=== PATIENT | female | born 1950 | race Caucasian/White ===

== ENCOUNTER 2017-01-08 10:53 | Emergency (ER) | payer OTHER ==
[2017-01-08 10:58] VITALS: BP 128/71; PULSE 63; TEMP 97.8; BMI 29.2
--- NOTE | 2017-01-08 12:37 | PDOC ---
History of Present Illness - General Chief Complaint: Injury Stated Complaint: PCP SENT/EVAL Time Seen by Provider: 01/08/17 12:00 History Source: Patient Exam Limitations: No Limitations - History of Present Illness Initial Comments: 01/08/17 12:31 And sent from [facility] for evaluation of fifth metatarsal fracture right foot. Patient was placed in a cast shoe, and was told would need to see an orthopedist immediately. Patient came to this emergency department for about evaluation from orthopedist. 01/08/17 12:38 Occurred: reports: just prior to arrival Severity: reports: mild, moderate Pain Location: reports: lower extremity (right foot ) Method of Injury: Yes: fall (inversion injury to right ankle ) Associated Symptoms (Fall): denies symptoms Past History - Travel Traveled outside of the country in the last 30 days: No Close contact w/someone who was outside of country & ill: No - Past Medical History Allergies/Adverse Reactions: Allergies Allergy/AdvReac Type Severity Reaction Status Date / Time No Known Allergies Allergy Verified 01/08/17 10:58 Home Medications: Ambulatory Orders Cholecalciferol (Vitamin D3) [Vitamin D] 2,000 unit PO DAILY 02/24/13 Folic Acid 1,000 mg PO DAILY 02/24/13 Aspirin [Aspir 81] 81 mg PO DAILY 10/31/15 Calcium Carbonate [Tums] 300 mg PO DAILY PRN 10/31/15 Allopurinol [Zyloprim -] 300 mg PO ASDIR 12/08/15 Methotrexate [Mexate -] 12.5 mg PO Q7D 12/08/15 Metoprolol Succinate [Toprol XL -] 25 mg PO DAILY 12/08/15 Anemia: No Asthma: No Cancer: No Cardiac Disorders: No CVA: No COPD: No CHF: No Dementia: No Diabetes: No GI Disorders: No Disorders: No HTN: Yes Hypercholesterolemia: Yes Liver Disease: No Seizures: No Thyroid Disease: Yes - Surgical History Abdominal Surgery: No Appendectomy: No Cardiac Surgery: No Cholecystectomy: No Lung Surgery: (lung biopsy) Neurologic Surgery: No Orthopedic Surgery: No - Immunization History Immunization Up to Date: Yes - Psycho/Social/Smoking Cessation Hx Anxiety: No Suicidal Ideation: No Smoking Status: No Smoking History: Never smoked Have you smoked in the past 12 months: No Number of Cigarettes Smoked Daily: 0 Hx Alcohol Use: Yes (SOCIAL) Drug/Substance Use Hx: No Substance Use Type: None Hx Substance Use Treatment: No Trauma Specific PMHX - Complaint Specific PMHX Back Injury: No Neck Injury: No Review of Systems - Review of Systems Able to Perform ROS?: Yes Is the patient limited Italian proficient: Yes Constitutional: Yes: Symptoms Reported HEENTM: No: Symptoms Reported Musculoskeletal: Yes: Symptoms Reported, See HPI, Joint Pain, Joint Swelling ( paint o 5th metatarsal and lateral midfoot ) Integumentary: Yes: Symptoms Reported, See HPI, Bruising Neurological: Yes: See HPI. No: Symptoms reported All Other Systems: Reviewed and Negative *Physical Exam - Vital Signs Last Vital Signs Temp Pulse Resp BP Pulse Ox 97.8 F 63 20 128/71 98 01/08/17 10:55 01/08/17 10:55 01/08/17 10:55 01/08/17 10:55 01/08/17 10:55 - Physical Exam General Appearance: Yes: Nourished, Appropriately Dressed, Apparent Distress HEENT: positive: RAJAN, Normal ENT Inspection, TMs Normal, Pharynx Normal Neck: positive: Supple Respiratory/Chest: positive: Lungs Clear Cardiovascular: positive: Regular Rate Musculoskeletal: positive: Normal Inspection Extremity: positive: Normal Capillary Refill, Normal Inspection, Normal Range of Motion, Tender, Swelling (bruising and point tenderness to 5th metatarsal , NV intact ) Integumentary: positive: Normal Color, Dry, Warm 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 NML intact, Fully Oriented, Alert, Normal Mood/ Affect, Normal Response, Motor Strength 5/5 Progress Note - Progress Note Progress Note: 5th metatarsal Fx by history, will have F/U with [facility] *DC/Admit/Observation/Transfer Diagnosis at time of Disposition: Fracture of fifth metatarsal bone of right foot Qualifiers: Encounter type: initial encounter Fracture type: closed Fracture alignment: nondisplaced Qualified Code(s): S92.354A - Nondisplaced fracture of fifth metatarsal bone, right foot, initial encounter for closed fracture - Discharge Dispostion Disposition: HOME Condition at time of disposition: Stable Admit: No - Referrals Referrals: Drew Kline MD [Staff Physician] - - Patient Instructions Printed Discharge Instructions: DI for Foot Fracture Additional Instructions: Rest, ice to area on and off for 15 minutes 4-6 times a day Avoid heavy lifting or exercise until pain and swelling is resolved or until further directed Keep area highly elevated to reduce swelling Use splints/Pancho wrap as directed Followup with orthopedist in one to 2 days if not improving, if significantly improved may wait one week for followup with orthopedist May use ibuprofen 2-200 mg tablets every 6 hours as needed for pain - Post Discharge Activity Work/School Note: Back to Work
== END 2017-01-08 12:42 | disposition home or self-care (01) ==
LOC: JERFT 10:53
DX: S92.354D Nondisplaced fracture of fifth metatarsal bone, right foot, subsequent encounter for fracture with routine healing (principal); W19.XXXD Unspecified fall, subsequent encounter; I10 Essential (primary) hypertension; E78.00 Pure hypercholesterolemia, unspecified
CPT/HCPCS: 99281-25